=== PATIENT | female | born 1985 | race Caucasian/White ===

== ENCOUNTER 2017-03-06 14:52 | Emergency (ER) | payer BC ==
[2017-03-06 15:19] VITALS: BP 122/69
--- NOTE | 2017-03-06 15:27 | UC ---
Throat Pain/Nasal Pradeep HPI - HPI Summary HPI Summary: complaint of sore throat for 2 days bilateral ear painn slight cough and nasal congestion denies fever and chills no taking any medications for symptoms - History of Current Complaint Chief Complaint: UCGeneralIllness Stated Complaint: throat Time Seen by Provider: 03/06/17 15:19 Hx Obtained From: Patient Hx Last Menstrual Period: 02/08/17 - Allergies/Home Medications Allergies/Adverse Reactions: Allergies Allergy/AdvReac Type Severity Reaction Status Date / Time No Known Allergies Allergy Verified 03/06/17 15:16 PMH/Surg Hx/FS Hx/Imm Hx Previously Healthy: Yes - Surgical History Surgical History: Yes Surgery Procedure, Year, and Place: [place] - Family History Known Family History: Negative: Diabetes - Social History Occupation: Employed Full-time Lives: With Family Alcohol Use: None Substance Use Type: None Smoking Status (MU): Never Smoked Tobacco Review of Systems Constitutional: Negative, Fever ENT: Sore Throat, Ear Ache, Nasal Discharge Respiratory: Cough Cardiovascular: Negative Gastrointestinal: Negative Genitourinary: Negative Motor: Negative Neurovascular: Negative Musculoskeletal: Negative Neurological: Negative Psychological: Negative All Other Systems Reviewed And Are Negative: Yes Physical Exam Triage Information Reviewed: Yes Appearance: No Pain Distress, Well-Nourished Vital Signs: Initial Vital Signs Temp 98.8 F 03/06/17 15:16 Pulse 74 03/06/17 15:16 Resp 16 03/06/17 15:16 BP 122/69 03/06/17 15:16 Pulse Ox 97 03/06/17 15:16 Vital Signs Reviewed: Yes Eyes: Positive: Conjunctiva Clear ENT: Positive: Pharyngeal erythema, Nasal congestion, Nasal drainage, TMs normal Neck: Positive: No Lymphadenopathy Respiratory: Positive: Lungs clear, Normal breath sounds, No respiratory distress, No accessory muscle use Cardiovascular: Positive: RRR, No Murmur, Pulses Normal, Brisk Capillary Refill Abdomen Description: Positive: Nontender, Soft Bowel Sounds: Positive: Present Musculoskeletal Exam: Normal Neurological Exam: Normal Psychological Exam: Normal Skin Exam: Normal Throat Pain/Nasal Course/Dx - Differential Dx/Diagnosis Differential Diagnosis/HQI/PQRI: Pharyngitis, Tonsillitis, URI Provider Diagnoses: pharyngitis Discharge - Discharge Plan Condition: Stable Disposition: HOME Prescriptions: Oxymetazoline 0.05% NASAL SPR* [Afrin 0.05% NASAL SPRAY*] 1 spray NASAL Q12H #1 btl Patient Education Materials: Pharyngitis (ED) Referrals: Jarvis Plascencia [Primary Care Provider] - Additional Instructions: Please start afrin as directed Increase fluids and rest Take acetaminophen or ibuprofen for fever or pain Please review your discharge instructions. If your symptoms do not improve please call your primary care provider or return to urgent care.
== END 2017-03-06 15:43 | disposition home or self-care (01) ==
LOC: UCCORT 14:52
DX: J02.9 Acute pharyngitis, unspecified (principal)
CPT/HCPCS: 87651; 99212; G0463

== ENCOUNTER 2017-04-24 10:32 | Emergency (ER) | payer BC ==
[2017-04-24 10:51] VITALS: BP 124/74
--- NOTE | 2017-04-24 11:21 | UC ---
Dental HPI - HPI Summary HPI Summary: Patient had a molar removed on the right upper jaw. area is inflammed, and white purulence noted. patient is having severe pain, has been taking ibuprofen and tylneol for pain without relief. - History of Current Complaint Chief Complaint: UCDentalProblem Stated Complaint: MOUTH PAIN Time Seen by Provider: 04/24/17 11:08 Hx Obtained From: Patient Hx Last Menstrual Period: 04/04/17 Onset/Duration: Sudden Onset, Lasting Days Severity: Severe Related History: Previous Dental Care on Same Tooth - Allergies/Home Medications Allergies/Adverse Reactions: Allergies Allergy/AdvReac Type Severity Reaction Status Date / Time No Known Allergies Allergy Verified 04/24/17 10:46 Home Medications: Home Medications Acetaminophen [Acetaminophen ER] 1,300 mg PO Q4H PRN 04/24/17 [History Confirmed 04/24/17] Cephalexin CAP* [Keflex CAP*] 500 mg PO Q8H 04/24/17 [History Confirmed 04/24/17 ] Ibuprofen TAB* [Motrin TAB* 800 MG] 800 mg PO Q8H PRN 04/24/17 [History Confirmed 04/24/17] PMH/Surg Hx/FS Hx/Imm Hx Previously Healthy: Yes - Surgical History Surgical History: Yes Surgery Procedure, Year, and Place: Appendectomy, 1994, [place] - Family History Known Family History: Negative: Diabetes - Social History Alcohol Use: None Substance Use Type: None Smoking Status (MU): Never Smoked Tobacco Review of Systems Constitutional: Negative Skin: Negative Eyes: Negative ENT: Dental Pain Respiratory: Negative Cardiovascular: Negative Gastrointestinal: Negative Genitourinary: Negative Motor: Negative Neurovascular: Negative Musculoskeletal: Negative Neurological: Headache Psychological: Negative All Other Systems Reviewed And Are Negative: Yes Physical Exam Triage Information Reviewed: Yes Appearance: Well-Appearing, Well-Nourished, Pain Distress Vital Signs: Initial Vital Signs Temp 98.8 F 04/24/17 10:42 Pulse 70 04/24/17 10:42 Resp 16 04/24/17 10:42 BP 124/74 04/24/17 10:42 Pulse Ox 97 04/24/17 10:42 Vital Signs Reviewed: Yes Eye Exam: Normal ENT Exam: Normal ENT: Positive: Hearing grossly normal, Pharynx normal, TMs normal Dental Exam: Normal Neck exam: Normal Neck: Positive: Supple, Nontender, Enlarged Nodes @ - right submandibular Respiratory Exam: Normal Respiratory: Positive: Chest non-tender, Lungs clear, Normal breath sounds Cardiovascular Exam: Normal Cardiovascular: Positive: RRR, No Murmur, Pulses Normal Abdominal Exam: Normal Abdomen Description: Positive: Nontender, No Organomegaly, Soft Bowel Sounds: Positive: Present Musculoskeletal Exam: Normal Neurological Exam: Normal Psychological Exam: Normal Skin Exam: Normal Dental Complaint Course/Dx - Course Course Of Treatment: hx obtained, exam performed ,meds reviewed, given pain medication and adivsed to continue her abx, follow up with denist if not improving - Differential Dx/Diagnosis Provider Diagnoses: dental pain. s/p tooth extraction infection Discharge - Discharge Plan Condition: Stable Disposition: HOME Patient Education Materials: Acute Dental Trauma (ED) Additional Instructions: 1. continue with your antibiotic 2. Use the medication as prescribed. 3. keep mouth clean and dry. 4. If still no relief, notify your dentist for follow up.
== END 2017-04-24 11:30 | disposition home or self-care (01) ==
LOC: UCCORT 10:32
DX: K04.7 Periapical abscess without sinus (principal); K08.89 Other specified disorders of teeth and supporting structures
CPT/HCPCS: 99212; G0463

== ENCOUNTER 2019-11-28 08:17 | Emergency (ER) | payer SELFPAY ==
[2019-11-28 08:41] VITALS: BP 109/53
--- NOTE | 2019-11-28 08:45 | UC ---
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 - and felt her left knee pop no cannot extend it States she is barely able to ambulate Is also >20 weeks Has seen [facility] in the past - History of Current Complaint Chief Complaint: UCLowerExtremity Stated Complaint: LT KNEE PAIN (WC) Time Seen by Provider: 11/28/19 08:21 Hx Last Menstrual Period: 04/04/17 Pain Intensity: 7 - Allergy/Home Medications Allergies/Adverse Reactions: Allergies Allergy/AdvReac Type Severity Reaction Status Date / Time No Known Allergies Allergy Verified 11/28/19 08:41 Home Medications: Home Medications NK [No Home Medications Reported] 11/28/19 [History Confirmed 11/28/19] PMH/Surg Hx/FS Hx/Imm Hx Previously Healthy: Yes - Surgical History Surgical History: Yes Surgery Procedure, Year, and Place: Appendectomy, - Family History Known Family History: Negative: Diabetes - Social History Alcohol Use: None Substance Use Type: None Smoking Status (MU): Never Smoked Tobacco Review of Systems All Other Systems Reviewed And Are Negative: Yes Physical Exam Triage Information Reviewed: Yes Appearance: Well-Appearing Vital Signs: Initial Vital Signs Temp 97.7 F 11/28/19 08:35 Pulse 93 11/28/19 08:35 Resp 18 11/28/19 08:35 BP 109/53 11/28/19 08:35 Pulse Ox 97 11/28/19 08:35 Vital Signs Reviewed: Yes Eyes: Positive: Conjunctiva Clear Musculoskeletal: Positive: Other: - minimal left knee effusion, no warmth or erythema. unable to fully extend knee Patient with mensicus testing Course/Dx - Course Course Of Treatment: Patient with left knee injury Will hold off on xraying due to Able to get her in to see [facility] Orthoped[facility] Dr. Elin Ibarra Knee immobilizer and crutches given Recommend going directly to [facility] [address] Worthington Use Knee immobilizer and crutches Weight bearing as tolerated Continue to elevate, ice and tylenol as needed for pain Follow up with Dr. Worthington regarding when it is safe to return to work - Diagnoses Provider Diagnosis: Left knee pain Discharge ED - Sign-Out/Discharge Documenting (check all that apply): Patient Departure All imaging exams completed and their final reports reviewed: No Studies - Discharge Plan Condition: Fair Disposition: HOME Patient Education Materials: Knee Sprain (DC) Referrals: Jarvis Plascencia [Primary Care Provider] - Additional Instructions: Recommend going directly to [facility] [address] Worthington Use Knee immobilizer and crutches Weight bearing as tolerated Continue to elevate, ice and tylenol as needed for pain Follow up with Dr. Worthington regarding when it is safe to return to work - Billing Disposition and Condition Condition: FAIR Disposition: Home
== END 2019-11-28 09:09 | disposition home or self-care (01) ==
LOC: UCCORT 08:17
DX: M25.562 Pain in left knee (principal); M25.462 Effusion, left knee; X50.1XXA Overexertion from prolonged static or awkward postures, initial encounter; Y93.89 Activity, other specified; Y92.524 Gas station as the place of occurrence of the external cause; Y99.0 Civilian activity done for income or pay
CPT/HCPCS: 99212; G0463